=== PATIENT | female | born 1930 | race Caucasian/White ===

== ENCOUNTER → 2016-06-07 | Outpatient (CLI) | payer MEDICARE, BC ==
[~2016-06-07] MED LIST: ABILIFY2 MG PO; AMOXICOT500 MG PO; ASPIRIN 81MG TA81 MG PO; CYANOCOBAL1000 MCG/M PO; DONEPEZIL 10MG10 MG PO; EVISTA60 MG PO; FUROSEMIDE 20MG20 MG PO; LEVOTHYROXIN0.075 M1 PO; MELOXICAM15 MG PO; MICRO-K 10 MEQ10 MEQ PO; NAMENDA XR28 MG PO; OCUVITE ADULT 51 SGL PO; ONE DAILY FOR1 EAC3 PO; OYSTER SHELL 51 EACH PO; RANITIDINE HCL150 MG PO; TRAZODONE 50MG50 MG PO
--- NOTE | 2016-06-09 18:24 | RADIOLOGY REPORT PS360 ---
ANKLE-LT-3 VIEWS ORDERING PHYSICIAN : KAITLIN HANSON MD PATIENT AGE: 86 years GENDER: Female INDICATION: LT ANKLE PAIN Left ankle pain. Ulcer on lateral aspect of the ankle. Previous ORIF ankle TECHNIQUE: 3 views left ankle. COMPARISON: 02/15/2010 left ankle. FINDINGS Previous ORIF a distal fibular and tibial fractures at the ankle. Metallic plate at seen along the medial aspect distal tibia., secured by 6 screwsnt, Suggestion of old healed fracture distal fibula shaft, bridged by a long metallic plate secured by 6 screws previously placed lateral aspect of the distal fibula.... And appearing stable. There is osseous bridging between the fibula and tibia through the interosseous region resulting from the old trauma and old healed fracture process. There is a soft tissue ulcer overlying the lateral malleolus I believe evident. This extends down to the screw the most inferior screw securing metallic plate here at the lateral malleolus.. Although I do not see any prominent inflammation this warrants close follow-up as infection here could potentially spread it more easily to the underlying bone through the screw defect no evidence of such currently on this plain film Otherwise note mild diffuse edema throughout the subcutaneous fat of the lower leg, circumferential The ankle mortise is intact. Dome of talus intact. IMPRESSION: 1. Previous ORIF distal fibula and tibial fractures. Osseous and fixation elements appear stable. 2. Slight additional intraosseous bridging between the tibia and fibula since prior 2009 exam . 3.. Subtle small soft tissue ulcer defect suggested, overlying the most inferior screw securing a long metallic plate at distal fibula.. This warrants close follow-up. Note comments in text. .
== END ==
LOC: RAD 09:32 → LAB 09:32
DX: M25.572 Pain in left ankle and joints of left foot (principal); S91.002D Unspecified open wound, left ankle, subsequent encounter

== ENCOUNTER 2016-12-03 18:23 | Inpatient (IN) | payer MEDICARE, BC ==
[~2016-12-03] VITALS: Ht 167.6 cm; Wt 58.1 kg
[2016-12-03 11:45] VITALS: BP 142/86
[2016-12-03 18:24] VITALS: BP 153/73
--- NOTE | 2016-12-03 18:34 | Emergency Room Report ---
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 N Clinical Suspician of Infection? N Mental Status: 1 - Regular (Normal Baseline) Sepsis Risk:Low Sepsis Risk Have you (or family members/close friends) recently traveled outside the [place]? N If Yes, where/when: Have you had exposure to infectious disease within the past month? N TB? Other? Specify: Comment The patient is brought in by ambulance from [facility] [place] She reportedly had a fall and fpc personnel reported that she had a "goose egg" on her head. The patient is demented and not able to give any substantive history. EMS personnel noted shortening and external rotation of LEFT lower extremity with hip pain and suspected a hip fracture. They note no other signs of injury. (Kobe ALBARADO, [place]) ALLERGIES Coded Allergies: promethazine (From PHENERGAN) (07/15/16) Home Medications Active Scripts Amoxicillin (Amoxicillin 500MG) 500 MG PO Q8 #30 CAP Prov: 01/08/16 Reported Medications ASPIRIN (Aspirin) 81 MG PO DAILY DONEPEZIL HCL (Donepezil 10MG Tablet) 15 MG PO QHS Furosemide (Furosemide) 20 MG PO DAILY PRN SWELLING Levothyroxine Sodium (Levothyroxine 0.075MG) 0.075 MG PO DAILY Meloxicam (Meloxicam 15MG) 15 MG PO DAILY MEMANTINE HCL (Namenda XR) 28 MG PO DAILY VIT C/VIT E/LUTEIN/MIN/OMEGA-3 (Ocuvite Softgel) 1 SGL PO DAILY Multivitamins-Min/FA/Ginkgo (One Daily For Women 50+ Adv Tb) 1 EACH PO DAILY Calcium Carbonate/Vitamin D3 (Oyster Shell 500 MG + Vit D Tb) 1 EACH PO BID POTASSIUM CHL (Potassium Chloride) 10 MEQ PO DAILY PRN WITH FUROSEMIDE Ranitidine Hcl (Ranitidine 150MG) 75 MG PO BID TRAZODONE HCL (Trazodone HCl) 50 MG PO QHS VITAMIN B12 (Cyanocobalamin Injection) 1,000 MCG PO DAILY (Ha Jackson MD) History Medical History General CAD? No Angina: No MT: No Hypertension? No Hyperlipidemia? Yes CHF? No DVT? No PE? No COPD? No Asthma? No Anemia? No GERD? No Gastric ulcers? No GI Bleed? No Hernia? No Thyroid Problems? Yes Hypothyroidism? Yes CVA? No Seizures? Yes Diabetes? No Renal Insuffiency? No End Stage Renal Disease? No UTI? Yes Stones? No GB Disease: No Nephritic Syndrome? No Asplenia? No Hepatitis? No Sickle Cell Disease? No Arthritis? No Migraines? No Cataracts? Yes Glaucoma? No MRSA? No HIV? No TB? No Anxiety? No Depression? No Cancer? No More? Yes Additional hx: ALZHEIMERS Immunization Hx DT/Tetanus Unknown Surgical Hx Previous Surgery?Y L KNEE SURGERY LEFT FOOT Family History Family Hx Diabetes Yes CAD No Hypertension No Hyperlipidemia No Cancer Yes TB No Social History Alcohol Alcohol: No (Abdoulaye Bullock MD) Social History Drugs none (Ha Jackson MD) Review of Systems All Other Systems Reviewed and Negative (unobtainable due to dementia) (Abdoulaye Bullock MD) Physical Exam Vital Signs Vital Signs Date Time Temp Pulse Resp B/P Pulse O2 O2 Flow FiO2 Ox Delivery Rate 12/03 2118 89 16 178/60 91 12/03 1956 16 12/04 1951 87 16 155/86 92 12/03 192 98.2 73 16 153/73 96 12/03 1848 16 12/03 1824 98.2 84 18 153/73 95 General Appearance elderly, thin, dementia Eye Exam - bilateral eye normal exam, bilateral eye PERRL, bilateral eye EOMI Ear, Nose, Throat hearing grossly normal, normal ENT inspection, no sign of cranial trauma Neck normal inspection, non-tender, supple, full range of motion Respiratory Status Yes: trachea midline, chest symmetrical, non tender chest. No: respiratory distress. Lung Sounds bilateral: normal breath sounds, lungs clear. Cardiovascular normal exam, regular rate/rhythm, no peripheral edema, no gallop, no JVD, no murmur, no rub, normal peripheral pulses Peripheral Pulses Pulses normal Yes Gastrointestinal normal bowel sounds, normal exam, non tender, soft, no organomegaly Extremities LEFT knee elevated on a pillow, externally rotated . Holding LEFT hip with LEFT hand. Pain in hip with any attempted rotation of LEFT lower extremity. 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 Yes Gómez was queried for this patient? No Reason not queried - emergent pt cond=no time Results/Orders Laboratory Tests 12/03/161999: Urine Color YELLOW, Urine Appearance CLEAR, Urine pH 6.0, Ur Specific [place] 1.025, Urine Protein NEGATIVE, Urine Ketones NEGATIVE, Urine Blood NEGATIVE, Urine Nitrate POSITIVE H, Urine Bilirubin NEGATIVE, Urine Urobilinogen 0.2, Ur Leukocyte Esterase TRACE H, Urine RBC OCC, Urine WBC 5-10, Amorphous Sediment 1 +, Urine Bacteria 4+, Urine Mucus 1+, Urine Glucose NEGATIVE 12/03/161824: Sodium 143, Potassium 4.2, Chloride 103, Carbon Dioxide 35 H, BUN 25 H, Creatinine 0.7, Estimated Creat Clear 49 L, Estimated GFR (MDRD) 79, Glucose 187 H, Calcium 9.1, Total Bilirubin 0.3, AST 23, ALT 24, Alkaline Phosphatase 107, Total Protein 7.1, Albumin 3.2 L, Globulin 3.9 H, Albumin/Globulin Ratio 0.8 L, WBC 4.5 L, RBC 3.83 L, Hgb 11.7 L, Hct 37.1, MCV 97.0, RDW 15.6, Plt Count 168, MPV 8.1, Gran % 68.0, Gran # 3.1, Lymphocytes % 22.2, Monocytes % 7.4 , Eosinophils % 2.2, Basophils % 0.3, Lymphocytes # 1.0, Monocytes # 0.3, Eosinophils # 0.1, Basophils # 0.0, PUBS MCHC 31.5 L, MCH 30.6 Current Medication Orders Sig/Pa Start time Last Medication Dose Route Stop Time Status Admin Morphine Sulfate 2 MG ONCE ONE 12/04 1999 DC 12/03 IV 12/03 Morphine Sulfate 0 .STK-MED ONE 12/03 1942 DC .ROUTE Ondansetron HCl 0 .STK-MED ONE 12/03 1846 DC .ROUTE Morphine Sulfate 0 .STK-MED ONE 12/03 1845 DC .ROUTE Morphine Sulfate 2 MG ONCE ONE 12/03 1844 DC 12/03 IV 12/03 1845 184 Ondansetron HCl 4 MG ONCE ONE 12/03 1844 DC 12/03 IV 12/03 Sodium Chloride 10 ML PRN PRN 12/03 1844 AC IV 12/04 1840 Orders Procedure Date/time Status DIET-NOTHING BY MOUTH 12/04 B Active Decision to admit 12/03 2137 Active TROPONIN I 12/[address] CHEST W/O CONTRAST 12/[address] ABD & PELVIS W/O CONTRAST 12/04 2031 Active CULTURE, URINE 12/[address] CHEST SCAN REQ 12/[address] ABD/PELVIS REQ 12/[address] HEAD W/O CONTRAST 12/[address] CERVICAL SPINE W/O CONT. 12/[address] HEAD REQ 12/[address] SCAN REQ 12/04 1843 Complete URINARY CATHETER INSERT 12/03 1842 Active URINALYSIS/COMPLETE 12/03 1842 Complete ELECTROCARDIOGRAM REQUEST 12/03 1840 Active IV SALINE LOCK 12/03 1840 Active CBC WITH AUTO DIFF 12/03 1840 Complete CHEM 12 PROFILE 12/03 1840 Complete 12 LEAD EKG-LATTIMER MINES (INITIAL) 12/03 UNK Active CM/EKG CM/EKG Comments EKG interpreted by Abdoulaye Bullock MD: Rhythm: Atrial fibrillation Rate: 81 [place]: LEFT Ectopy: Premature ventricular contractions or aberrantly conducted beats Conduction: RIGHT bundle branch block, LEFT anterior fascicular block ST Segment Changes: none T Wave Changes: none Q Waves: none No evidence of acute ischemia or injury Baseline artifact present, but I consider the EKG adequate for accurate interpretation. XRAY/CT/US XRAY/CT/US XRAY chest, femur, hip Comment X-ray interpreted by Abdoulaye Bullock M.D.: LEFT subcapital hip fracture, displaced/angulated Femur x-ray: No additional findings Chest x-ray: Possible RIGHT basilar pneumothorax, does not seem to extend to the apex. No definite rib fractures seen. Progress - 8:00 PM: At shift change, I have discussed the patient with Dr. Jackson, who will assume care of the patient at this time. I have discussed all clinical information including history, physical and diagnostic study results. Preliminary diagnoses based on information available at this point have been recorded by me. Controlled substance administration and critical care statement are also preliminary, as of the time of handoff. Chest x-ray shows possible RIGHT basilar pneumothorax. Chest and abdominal CT scans ordered. 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 ST/Twave chgs, RBBB, lahb XRAY/CT/US XRAY/CT/US [address] interpretation by discussed w/radiologist Time results known: 2117 CT Results abnormal (no pxt- see report) (Ha Jackson MD) Departure Departure Disposition Still a Patient Condition STABLE ED Critical Care Critical Care No (Abdoulaye Bullock MD) Departure Time of Disposition 2140 Clinical Impression Primary Impression: Closed left hip fracture Qualifiers: Encounter type: initial encounter Qualified Code: S72.002A - Fracture of unspecified part of neck of left femur, initial encounter for closed fracture Secondary Impressions: Dementia Qualifiers: Dementia type: unspecified type Dementia behavioral disturbance: without behavioral disturbance Qualified Code: F03.90 - Unspecified dementia without behavioral disturbance RBBB (right bundle branch block with left anterior fascicular block) UTI (urinary tract infection) Qualifiers: Urinary tract infection type: acute cystitis Hematuria presence: without hematuria Qualified Code: N30.00 - Acute cystitis without hematuria Comments discussed with dr albarado (Ha Jackson MD) at 2002 at 2144
--- NOTE | 2016-12-03 18:34 | Emergency Room Report ---
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 N Clinical Suspician of Infection? N Mental Status: 1 - Regular (Normal Baseline) Sepsis Risk:Low Sepsis Risk Have you (or family members/close friends) recently traveled outside the [place]? N If Yes, where/when: Have you had exposure to infectious disease within the past month? N TB? Other? Specify: Comment [place] [facility] [place] a fall and snf personnel reported that she had a "goose egg" on her head. The patient is demented and not able to give any substantive history. EMS personnel noted shortening and external rotation of LEFT lower extremity with hip pain and suspected a hip fracture. They note no other signs of injury. (Kobe ALBARADO, [place]) ALLERGIES Coded Allergies: promethazine (From PHENERGAN) (07/15/16) Home Medications Active Scripts Amoxicillin (Amoxicillin 500MG) 500 MG PO Q8 #30 CAP Prov: 01/08/16 Reported Medications ASPIRIN (Aspirin) 81 MG PO DAILY DONEPEZIL HCL (Donepezil 10MG Tablet) 15 MG PO QHS Furosemide (Furosemide) 20 MG PO DAILY PRN SWELLING Levothyroxine Sodium (Levothyroxine 0.075MG) 0.075 MG PO DAILY Meloxicam (Meloxicam 15MG) 15 MG PO DAILY MEMANTINE HCL (Namenda XR) 28 MG PO DAILY VIT C/VIT E/LUTEIN/MIN/OMEGA-3 (Ocuvite Softgel) 1 SGL PO DAILY Multivitamins-Min/FA/Ginkgo (One Daily For Women 50+ Adv Tb) 1 EACH PO DAILY Calcium Carbonate/Vitamin D3 (Oyster Shell 500 MG + Vit D Tb) 1 EACH PO BID POTASSIUM CHL (Potassium Chloride) 10 MEQ PO DAILY PRN WITH FUROSEMIDE Ranitidine Hcl (Ranitidine 150MG) 75 MG PO BID TRAZODONE HCL (Trazodone HCl) 50 MG PO QHS VITAMIN B12 (Cyanocobalamin Injection) 1,000 MCG PO DAILY (Ha Jackson MD) History Medical History General CAD? No Angina: No AR: No Hypertension? No Hyperlipidemia? Yes CHF? No DVT? No PE? No COPD? No Asthma? No Anemia? No GERD? No Gastric ulcers? No GI Bleed? No Hernia? No Thyroid Problems? Yes Hypothyroidism? Yes CVA? No Seizures? Yes Diabetes? No Renal Insuffiency? No End Stage Renal Disease? No UTI? Yes Stones? No GB Disease: No Nephritic Syndrome? No Asplenia? No Hepatitis? No Sickle Cell Disease? No Arthritis? No Migraines? No Cataracts? Yes Glaucoma? No MRSA? No HIV? No TB? No Anxiety? No Depression? No Cancer? No More? Yes Additional hx: ALZHEIMERS Immunization Hx DT/Tetanus Unknown Surgical Hx Previous Surgery?Y L KNEE SURGERY LEFT FOOT Family History Family Hx Diabetes Yes CAD No Hypertension No Hyperlipidemia No Cancer Yes TB No Social History Alcohol Alcohol: No (Abdoulaye Bullock MD) Social History Drugs none (Ha Jackson MD) Review of Systems All Other Systems Reviewed and Negative (unobtainable due to dementia) (Abdoulaye Bullock MD) Physical Exam Vital Signs Vital Signs Date Time Temp Pulse Resp B/P Pulse O2 O2 Flow FiO2 Ox Delivery Rate 12/03 2118 89 16 178/60 91 12/03 1956 16 12/04 1951 87 16 155/86 92 12/03 192 98.2 73 16 153/73 96 12/03 1848 16 12/03 1824 98.2 84 18 153/73 95 General Appearance elderly, thin, dementia Eye Exam - bilateral eye normal exam, bilateral eye PERRL, bilateral eye EOMI Ear, Nose, Throat hearing grossly normal, normal ENT inspection, no sign of cranial trauma Neck normal inspection, non-tender, supple, full range of motion Respiratory Status Yes: trachea midline, chest symmetrical, non tender chest. No: respiratory distress. Lung Sounds bilateral: normal breath sounds, lungs clear. Cardiovascular normal exam, regular rate/rhythm, no peripheral edema, no gallop, no JVD, no murmur, no rub, normal peripheral pulses Peripheral Pulses Pulses normal Yes Gastrointestinal normal bowel sounds, normal exam, non tender, soft, no organomegaly Extremities LEFT knee elevated on a pillow, externally rotated . Holding LEFT hip with LEFT hand. Pain in hip with any attempted rotation of LEFT lower extremity. 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 Yes Gómez was queried for this patient? No Reason not queried - emergent pt cond=no time Results/Orders Laboratory Tests 12/03/161999: Urine Color YELLOW, Urine Appearance CLEAR, Urine pH 6.0, Ur Specific [place] 1.025, Urine Protein NEGATIVE, Urine Ketones NEGATIVE, Urine Blood NEGATIVE, Urine Nitrate POSITIVE H, Urine Bilirubin NEGATIVE, Urine Urobilinogen 0.2, Ur Leukocyte Esterase TRACE H, Urine RBC OCC, Urine WBC 5-10, Amorphous Sediment 1 +, Urine Bacteria 4+, Urine Mucus 1+, Urine Glucose NEGATIVE 12/03/161824: Sodium 143, Potassium 4.2, Chloride 103, Carbon Dioxide 35 H, BUN 25 H, Creatinine 0.7, Estimated Creat Clear 49 L, Estimated GFR (MDRD) 79, Glucose 187 H, Calcium 9.1, Total Bilirubin 0.3, AST 23, ALT 24, Alkaline Phosphatase 107, Total Protein 7.1, Albumin 3.2 L, Globulin 3.9 H, Albumin/Globulin Ratio 0.8 L, WBC 4.5 L, RBC 3.83 L, Hgb 11.7 L, Hct 37.1, MCV 97.0, RDW 15.6, Plt Count 168, MPV 8.1, Gran % 68.0, Gran # 3.1, Lymphocytes % 22.2, Monocytes % 7.4 , Eosinophils % 2.2, Basophils % 0.3, Lymphocytes # 1.0, Monocytes # 0.3, Eosinophils # 0.1, Basophils # 0.0, PUBS MCHC 31.5 L, MCH 30.6 Current Medication Orders Sig/Pa Start time Last Medication Dose Route Stop Time Status Admin Morphine Sulfate 2 MG ONCE ONE 12/04 1999 DC 12/03 IV 12/03 Morphine Sulfate 0 .STK-MED ONE 12/03 1942 DC .ROUTE Ondansetron HCl 0 .STK-MED ONE 12/03 1846 DC .ROUTE Morphine Sulfate 0 .STK-MED ONE 12/03 1845 DC .ROUTE Morphine Sulfate 2 MG ONCE ONE 12/03 1844 DC 12/03 IV 12/03 1845 184 Ondansetron HCl 4 MG ONCE ONE 12/03 1844 DC 12/03 IV 12/03 Sodium Chloride 10 ML PRN PRN 12/03 1844 AC IV 12/04 1840 Orders Procedure Date/time Status DIET-NOTHING BY MOUTH 12/04 B Active Decision to admit 12/03 2137 Active TROPONIN I 12/[address] CHEST W/O CONTRAST 12/[address] ABD & PELVIS W/O CONTRAST 12/04 2031 Active CULTURE, URINE 12/[address] CHEST SCAN REQ 12/[address] ABD/PELVIS REQ 12/[address] HEAD W/O CONTRAST 12/[address] CERVICAL SPINE W/O CONT. 12/[address] HEAD REQ 12/[address] SCAN REQ 12/04 1843 Complete URINARY CATHETER INSERT 12/03 1842 Active URINALYSIS/COMPLETE 12/03 1842 Complete ELECTROCARDIOGRAM REQUEST 12/03 1840 Active IV SALINE LOCK 12/03 1840 Active CBC WITH AUTO DIFF 12/03 1840 Complete CHEM 12 PROFILE 12/03 1840 Complete 12 LEAD EKG-GILBY (INITIAL) 12/03 UNK Active CM/EKG CM/EKG Comments EKG interpreted by Abdoulaye Bullock MD: Rhythm: Atrial fibrillation Rate: 81 [place]: LEFT Ectopy: Premature ventricular contractions or aberrantly conducted beats Conduction: RIGHT bundle branch block, LEFT anterior fascicular block ST Segment Changes: none T Wave Changes: none Q Waves: none No evidence of acute ischemia or injury Baseline artifact present, but I consider the EKG adequate for accurate interpretation. XRAY/CT/US XRAY/CT/US XRAY chest, femur, hip Comment X-ray interpreted by Abdoulaye Bullock M.D.: LEFT subcapital hip fracture, displaced/angulated Femur x-ray: No additional findings Chest x-ray: Possible RIGHT basilar pneumothorax, does not seem to extend to the apex. No definite rib fractures seen. Progress - 8:00 PM: At shift change, I have discussed the patient with Dr. Jackson, who will assume care of the patient at this time. I have discussed all clinical information including history, physical and diagnostic study results. Preliminary diagnoses based on information available at this point have been recorded by me. Controlled substance administration and critical care statement are also preliminary, as of the time of handoff. Chest x-ray shows possible RIGHT basilar pneumothorax. Chest and abdominal CT scans ordered. (Abdoulaye Bullock MD) CM/EKG CM/post secondary professional Rhythm Atrial Fibrillation EKG compared w/(date of old), non-spec. ST/Twave chgs, RBBB, lahb XRAY/CT/US XRAY/CT/US [address] interpretation by discussed w/radiologist Time results known: 2117 CT Results abnormal (no pxt- see report) (Ha Jackson MD) Departure Departure Disposition Still a Patient Condition STABLE ED Critical Care Critical Care No (Abdoulaye Bullock MD) Departure Time of Disposition 2140 Clinical Impression Primary Impression: Closed left hip fracture Qualifiers: Encounter type: initial encounter Qualified Code: S72.002A - Fracture of unspecified part of neck of left femur, initial encounter for closed fracture Secondary Impressions: Dementia Qualifiers: Dementia type: unspecified type Dementia behavioral disturbance: without behavioral disturbance Qualified Code: F03.90 - Unspecified dementia without behavioral disturbance RBBB (right bundle branch block with left anterior fascicular block) UTI (urinary tract infection) Qualifiers: Urinary tract infection type: acute cystitis Hematuria presence: without hematuria Qualified Code: N30.00 - Acute cystitis without hematuria Comments discussed with dr albarado (Ha Jackson MD) at 2002 at 2144
--- OUTSIDE RECORDS SUMMARY | 2016-12-03 18:50 | External Medical Summary Rpt ---
Author Author [employer] Organization [employer] Address Unknown Phone Unavailable Purpose Continuity of Care Document - through 2016
--- OUTSIDE RECORDS SUMMARY | 2016-12-03 18:50 | External Medical Summary Rpt ---
Demographics Preferred Language Bengali Marital Status Unknown Moravian Affiliation Unknown Race Unknown Ethnic Group Unknown Author Author , ANDI ESCAMILLA Address Unknown Phone Immunization Unable to retrieve immunization data due to connection failure with Immunization Registry. Please try again later.
--- OUTSIDE RECORDS SUMMARY | 2016-12-03 18:50 | External Medical Summary Rpt ---
Demographics Preferred Language Tajik Marital Status Unknown Episcopalian Affiliation Unknown Race Unknown Ethnic Group Unknown Author Author , ANDI ESCAMILLA Address Unknown Phone Immunization Unable to retrieve immunization data due to connection failure with Immunization Registry. Please try again later.
--- OUTSIDE RECORDS SUMMARY | 2016-12-03 18:50 | External Medical Summary Rpt ---
Author Author [employer], [employer] Organization [employer] Address Unknown Phone Unavailable
--- OUTSIDE RECORDS SUMMARY | 2016-12-03 18:50 | External Medical Summary Rpt ---
Author Author [employer]NANC[employer] Address Unknown Phone Purpose Continuity of Care Document - through 2016
[2016-12-03 19:04] LABS: LYMPH % 22.2 % (10-50.0)
[2016-12-03 19:09] LABS: HEMOGLOBIN 11.7 g/dL (12.2-16.2)
[2016-12-03 20:13] LABS: URINE BILIRUBIN - DIPSTICK NEGATIVE (NEG); URINE BLOOD NEGATIVE (NEG)
--- NOTE | 2016-12-03 21:39 | RADIOLOGY REPORT PS360 ---
CHEST-AP VIEW ONLY COMPARISON: PA and lateral chest 06/19/2016 HISTORY: Chest pain after a fall TECHNIQUE: AP supine chest FINDINGS: The lung alba are fairly well-expanded and appear clear of infiltrate. There is no obvious rib fracture and there is no pneumothorax. There is a linear interface seen paralleling the right lateral chest which suspect is due to a skin fold rather than a pneumothorax but if there is a strong clinical suspicion of a possible developing pneumothorax and upright AP chest will be helpful for better evaluation. There is mild cardiomegaly. There is no definite pleural fluid. IMPRESSION: Cardio megaly no definite acute chest pathology noted, see discussion above regarding possible pneumothorax
--- NOTE | 2016-12-03 21:40 | RADIOLOGY REPORT PS360 ---
HIP LT 2-3V W/PELVIS IF PERFOR COMPARISON: None HISTORY: Left hip pain after a fall TECHNIQUE: AP pelvis cone-down AP and crosstable lateral views left hip FINDINGS: Is a femoral neck fracture left hip with coxa vera angulation at the fracture site and slight upward retraction of the femur. The femoral head remains within the acetabulum. The right hip is intact. The iliac bones and pubic bones appear intact. IMPRESSION: Subcapital femoral neck fracture with coxa vera angulation left hip
--- NOTE | 2016-12-03 21:42 | RADIOLOGY REPORT PS360 ---
FEMUR-LT-2 VIEWS COMPARISON: None HISTORY: Left hip pain after fall TECHNIQUE: AP and crosstable lateral views FINDINGS: The femur distal to the femoral neck is intact with no evidence of fracture. There is minor degenerative change of the knee joint with joint space narrowing medially. The soft tissues are normal. There is faint calcification of the superficial femoral artery. IMPRESSION: Femoral neck fracture as described in the hip report, otherwise intact left distal femur
--- OUTSIDE RECORDS SUMMARY | 2016-12-03 21:54 | External Medical Summary Rpt ---
Demographics Preferred Language Slovenian Marital Status Unknown Taoist Affiliation Unknown Race Unknown Ethnic Group Unknown Author Author ANDI Address Unknown Phone Immunization No patient found.
--- OUTSIDE RECORDS SUMMARY | 2016-12-03 21:54 | External Medical Summary Rpt ---
Demographics Preferred Language Greenlandic Marital Status Unknown Caodaism Affiliation Unknown Race Unknown Ethnic Group Unknown Author Author ANDI Address Unknown Phone Immunization No patient found.
[2016-12-03 23:00] VITALS: BP 142/86
--- NOTE | 2016-12-03 23:05 | RADIOLOGY REPORT PS360 ---
CT HEAD WITHOUT CONTRAST CT BONE WINDOWS included ORDERING PHYSICIAN : Wesly Triplett MD PATIENT AGE: 86 years GENDER: Female PROCEDURE: Routine axial images headwithout contrast. Brain & bone windows HISTORY: Unwitnessed FALL 86-year-old. Fall. Head injury. Headache. Head trauma. COMPARISON: December 2015 CT head without. Also November 2008 CT head FINDINGS: No acute intracranial findings. No hemorrhage. . No mass effect or mass lesion. No subdural nor extra-axial collection. . No significant change since [address] Again note small 8 mm focal pleural based calcification anteriorly, just to the left of the falx. I of this appears stable and reflects a benign feature from either due to focal dural calcification or small stable calcified meningioma.. No significant progression or change since head CT dated back to 2008. Prominent cerebral atrophy. Prominent chronic small vessel deep white matter ischemic,/ gliotic changes at cerebral hemispheres bilaterally again seen no significant change since previous study. Patchy low-density throughout the periventricular region. Also Specifically note a focal 5 mm small lacunar infarct overlying the left lateral ventricle anteriorly. Posterior fossa is unremarkable The skull is intact. No fracture. No remarkable application integration specialist hematoma. Paranasal sinuses are fairly clear with only minor mucosal thickening at the posterior aspect left maxillary sinus. No air-fluid levelsMastoid air cells, middle ear & IACs are unremarkable. IMPRESSION: No acute intracranial findings. No significant change versus December 2015 Diffuse cerebral atrophy. Prominent chronic small vessel deep white matter ischemic changes cerebral hemispheres bilateral again noted
--- NOTE | 2016-12-03 23:10 | RADIOLOGY REPORT PS360 ---
CT CERVICAL SPINE W/O CONT Ordering Physician: Wesly Triplett MD Patient Age: 86 years: Female HISTORY: FALL. Neck pain. Trauma. TECHNIQUE: Helical CT scanning performed of the cervical spine with axial, sagittal and coronal reconstruction CT workstation FINDINGS . No acute fracture nor subluxation cervical spine.. Alignment and prevertebral soft tissues appear satisfactory. Multilevel degenerative disc changes, stable and cervical spondylosis with. C4/5. Disc space narrowing most evident posteriorly at this level with Diffuse posterior hypertrophic ridging impinge upon thecal sac and yielding bilateral foraminal encroachment most of the left. C-spine C6 with this space narrowing and trace posterior ridging most evident to the right right foraminal encroachment. Facet hypertrophy and arthropathy bilaterally. Prevertebral soft tissues satisfactory. Apices the lungs clear. IMPRESSION: No acute fracture nor subluxation cervical spine Normal alignment Cervical spondylosis with degenerative disc changes C-spine. Developing degenerative facet changes also noted.
[2016-12-04] VITALS (15 sets, daily range): BP systolic 85–123; BP diastolic 50–87
[2016-12-04 06:41] LABS: HEMOGLOBIN 11.3 g/dL (12.2-16.2); LYMPH # 0.7 K/mm3 (0.7-4.5); LYMPH % 9.5 % (10-50.0)
--- NOTE | 2016-12-04 07:42 | HISTORY AND PHYSICAL REPORT ---
Demographics: Admit date: 12/04/16 Chief complaint: Fall at [facility] with LEFT hip fracture PRIMARY DIAGNOSIS: left hip fracture Allergies: Coded Allergies: promethazine (From PHENERGAN) (07/15/16) History of present illness: History of present illness: 86-year-old white female with significant/end-stage dementia as well as significant cardiomyopathy with ejection fraction in the 20 percent range who presented to the emergency department after falling with LEFT hip pain, found to have fracture, admitted to hospital. This morning she is pleasant and talkative but clearly demented. Has no complaints of pain. Past medical history: Family HX Diabetes Yes CAD No Hypertension No Hyperlipidemia No Cancer Yes TB No Immunization HX DT/Tetanus Unknown Pneumonia Unknown TB Test in last year No General CAD? No Angina: No HI: No Hypertension? No Hyperlipidemia? Yes CHF? No DVT? No PE? No COPD? No Asthma? No Anemia? No GERD? No Gastric ulcers? No GI Bleed? No Hernia? No Thyroid Problems? Yes Hypothyroidism? Yes CVA? No Seizures? Yes Diabetes? No Renal Insuffiency? No UTI? Yes Stones? No GB Disease: No Nephritic Syndrome? No Asplenia? No Hepatitis? No Sickle Cell Disease? No Arthritis? No Migraines? No Cataracts? Yes Glaucoma? No MRSA? No HIV? No TB? No Anxiety? No Depression? No Cancer? No More? Yes Additional hx: ALZHEIMERS Past Surgical HX Previous Surgery?Y L KNEE SURGERY LEFT FOOT Current home meds: Active Scripts Amoxicillin (Amoxicillin 500MG) 500 MG PO Q8 #30 CAP Prov: 01/08/16 Reported Medications ASPIRIN (Aspirin) 81 MG PO DAILY DONEPEZIL HCL (Donepezil 10MG Tablet) 15 MG PO QHS Furosemide (Furosemide) 20 MG PO DAILY PRN SWELLING Levothyroxine Sodium (Levothyroxine 0.075MG) 0.075 MG PO DAILY Meloxicam (Meloxicam 15MG) 15 MG PO DAILY MEMANTINE HCL (Namenda XR) 28 MG PO DAILY VIT C/VIT E/LUTEIN/MIN/OMEGA-3 (Ocuvite Softgel) 1 SGL PO DAILY Multivitamins-Min/FA/Ginkgo (One Daily For Women 50+ Adv Tb) 1 EACH PO DAILY Calcium Carbonate/Vitamin D3 (Oyster Shell 500 MG + Vit D Tb) 1 EACH PO BID POTASSIUM CHL (Potassium Chloride) 10 MEQ PO DAILY PRN WITH FUROSEMIDE Ranitidine Hcl (Ranitidine 150MG) 75 MG PO BID TRAZODONE HCL (Trazodone HCl) 50 MG PO QHS VITAMIN B12 (Cyanocobalamin Injection) 1,000 MCG PO DAILY Social Hx: Smoking HX Tobacco No Are you/the child exposed to second-hand smoke: No Alcohol Alcohol: No Hx of Drug Use Drug Use? No Patien't marital status is single Patient's support system is excellent Comment: Maintains DNR status, long-term resident of memory unit at local [facility] Review of systems: Constitutional No: fever, malaise, weakness. Respiratory No: no symptoms reported. Cardiovascular No no symptoms reported Gastrointestinal/Abdominal No no symptoms reported Genitourinary No: no symptoms reported, see HPI. Musculoskeletal No: no symptoms reported. Neurological No: see HPI. Exam: Lab data for last 24 hours: Laboratory Tests 12/04/16 0620: Sodium 142, Potassium 4.3, Chloride 104, Carbon Dioxide 29, BUN 22 H, Creatinine 0.7, Estimated Creat Clear 45 L, Estimated GFR (MDRD) 79, Glucose 190 H, Calcium 8.6, WBC 7.3, RBC 3.64 L, Hgb 11.3 L, Hct 35.1 L, MCV 96.6, RDW 15.4, Plt Count 160, MPV 8.4, Gran % 82.4 H, Gran # 6.0, Lymphocytes % 9.5 L, Monocytes % 7.9, Eosinophils % 0.0 L, Basophils % 0.2, Lymphocytes # 0.7, Monocytes # 0.6, Eosinophils # 0.0, Basophils # 0.0, PUBS MCHC 32.1, MCH 31.0 12/03/161999: Urine Color YELLOW, Urine Appearance CLEAR, Urine pH 6.0, Ur Specific [place] 1.025, Urine Protein NEGATIVE, Urine Ketones NEGATIVE, Urine Blood NEGATIVE, Urine Nitrate POSITIVE H, Urine Bilirubin NEGATIVE, Urine Urobilinogen 0.2, Ur Leukocyte Esterase TRACE H, Urine RBC OCC, Urine WBC 5-10, Amorphous Sediment 1 +, Urine Bacteria 4+, Urine Mucus 1+, Urine Glucose NEGATIVE 12/03/161824: Troponin I < 0.02 07/11/17 1825: Sodium 143, Potassium 4.2, Chloride 103, Carbon Dioxide 35 H, BUN 25 H, Creatinine 0.7, Estimated Creat Clear 49 L, Estimated GFR (MDRD) 79, Glucose 187 H, Calcium 9.1, Total Bilirubin 0.3, AST 23, ALT 24, Alkaline Phosphatase 107, Total Protein 7.1, Albumin 3.2 L, Globulin 3.9 H, Albumin/Globulin Ratio 0.8 L, WBC 4.5 L, RBC 3.83 L, Hgb 11.7 L, Hct 37.1, MCV 97.0, RDW 15.6, Plt Count 168, MPV 8.1, Gran % 68.0, Gran # 3.1, Lymphocytes % 22.2, Monocytes % 7.4 , Eosinophils % 2.2, Basophils % 0.3, Lymphocytes # 1.0, Monocytes # 0.3, Eosinophils # 0.1, Basophils # 0.0, PUBS MCHC 31.5 L, MCH 30.6 Microbiology 12/04 1999 URINE CC: Urine Culture - RECD Admission vital signs: 1ST Vital Signs Result Date Time Pulse Ox 93 12/03 1145 O2 Delivery ROOM AIR 12/03 1145 B/P 142/86 12/03 1145 Temp 98.2 12/03 1145 Pulse 94 12/03 1145 Resp 18 12/03 1145 Additional information: Patient is talkative, disoriented to place and time. Lungs are clear in anterior alba. Heart rate regular with gallop rhythm noted which is a previously old finding. Abdomen is soft and nontender. LEFT leg is shortened and externally rotated. Pulses are good however and she is able to wiggle her toes. Plan: Problem List 1. Closed left hip fracture 2. Systolic congestive heart failure 3. Dementia Plan: Patient with LEFT hip fracture. Also with severe cardiomyopathy with low ejection fraction, advanced age. Patient is elevated risk for surgery but given current situation this seems to be in absolutely necessary procedure. Continue cardiology evaluation. Will follow closely. at 0742
--- NOTE | 2016-12-04 07:58 | PHARMACY CLINIC NOTE ---
Patient Demographics Patient Demographics Admission date: 12/03/16 Date: 12/04/16 Time: 0758 Allergies Coded Allergies: promethazine (From PHENERGAN) (07/15/16) HEIGHT- FT: 5 IN: 6.00 K.[id number] VTE General Information Labs: Laboratory Tests 12/04 12/03 0620 1825 Hematology Hgb (12.2 - 16.2 g/dL) 11.3 L 11.7 L Hct (37.0 - 47.0 %) 35.1 L 37.1 Plt Count (142 - 424 K/mm3) 160 168 Disclaimer The following section includes nursing documentation that has been pulled in for pharmacy review. Patient's VTE score: 4 Patient's VTE Risk: LOW RISK Clinical trial participant? No VTE prophylaxis NQF [id number] VTE prophylaxis ordered? Yes Type of prophylaxis/treatment: MAXIMILIANO at 0758
[2016-12-04] MEDS ORDERED: SERTRALINE25 MG PO (08:07)
[2016-12-04] MEDS ORDERED: CARVEDILOL3.125 M1 PO (08:08)
[2016-12-04] MEDS ORDERED: LISINOPRIL2.5 M1 PO (08:08)
[2016-12-04] MEDS ORDERED: MIRTAZAPINE15 M1 PO (08:08)
--- NOTE | 2016-12-04 09:00 | RADIOLOGY REPORT PS360 ---
CT ABD PELVIS W/O CONTRAST Ordering Physician: Wesly Triplett MD Patient Age: 86 years: Female HISTORY: [id number]. Fall with pain. Hip fracture. TECHNIQUE: Helical CT scanning performed the abdomen & pelvis COMPARISON is made to previous CT abdomen from January 2010 FINDINGS Lower thorax. Basilar atelectasis most evident on left lung base . Scant pericardial effusion. ABDOMEN/PELVIS. Lack of oral and IV contrast decreases sensitivity particularly in setting of trauma. If there should be persistent abdominal suggest [id number] CT abdomen with contrast as per trauma protocol. There is also streak artifact from the patient's arms at her side as well as some motion artifact which degrades images currently. Liver. Unremarkable Gallbladder unremarkable no calcified stones. Pancreas limited noncontrast images here unremarkable . Spleen. Normal size no gross acute findings on this noncontrast study. Kidneys. No acute findings. No obstructive uropathy. Tiny punctate 2.5 mm calculus at lower pole left kidney. Nonobstructive. No free fluid no free air in the abdomen or pelvis. GI tract Stomach. Moderately distended food/fluid filled stomach Small bowel. Generous caliber small bowel loops towards the lower abdomen and pelvis. Increased gas in some loops with with moderate fluid other distal small bowel- appearance may reflect mild ileus. Large bowel. A generous stool throughout the colon suggesting mild constipation. Diverticulosis is fairly extensive at the redundant sigmoid colon with scattered diverticuli at the left colon. No evidence of diverticulitis. Pelvis. Haq catheter loops within the bladder. Minimal air within the bladder likely related to the Haq catheter. The small postmenopausal uterus. No adnexal masses no free fluid. Terminal ileum appears normal. No evidence of appendicitis Bones. No acute findings. Spine Again prominent grade 1 spinal listhesis of L4 on 5 with diffuse disc bulge and exuberant facet hypertrophy at this level noted yielding prominent spinal stenosis L4/5 level.. Degenerative disc space narrowing and posterior hypertrophic ridging at L2/3 IMPRESSION 1. no acute findings in the abdomen or pelvis. On this noncontrast CT abdomen/pelvis study If abdominal pain persist suggest a follow-up postcontrast abdomen per trauma protocol. 2.. Generous gas, generous fluid within borderline distended distal small bowel loops-could reflect mild Ileus but unimpressive 3. Other incidental observations in text: .Colonic diverticulosis most extensive sigmoid colon .Tiny 2.5 mm nonobstructive calculus lower pole left kidney. .. Haq catheter in place likely accounting for small amount of air in the bladder
--- NOTE | 2016-12-04 09:09 | CONSULT NOTE ---
Standard Demographics Patient Demo Date of Consultation: 12/04/16 Referring Provider: Wesly Triplett MD Reason for Consultation: Pre-op evaluation PRIMARY DIAGNOSIS: left hip fracture Problem list Problem list: 1. Severe cardiomyopathy A. Echocardiogram, 07/10/16 showing EF of 15-20 percent with global hypokinesis. Severe MR/TR with elevated RVSP of 44 mmHg indicative of moderate pulmonary hypertension 2. Dementia 3. Chronic kidney disease, stage III 4. History of hypertension History of present illness: History of present illness: 86-year-old white female with significant/end-stage dementia as well as significant cardiomyopathy with ejection fraction in the 20 percent range who presented to the emergency department after falling with LEFT hip pain, found to have fracture, admitted to hospital. This morning she is pleasant and talkative but clearly demented. Has no complaints of pain. The above per Dr. Triplett. The granddaughter is present in the room. She relates that there are 2 possibilities of outpatient broke her hip. One was that she was found down with no witnesses. The other was that she stood up after eating and tripped and fell. The patient does not remember. Electrocardiogram shows atrial fibrillation with controlled ventricular response , RIGHT bundle branch block and LEFT anterior fascicular block. Atrial fibrillation is new compared with electrocardiogram from earlier this year. She previously had a severe first-degree AV block. Past Medical History: General: Hypertension No CVA No Seizures Yes TB No COPD No Asthma No Diabetes No Angina No LA No Hyperlipidemia Yes Urinary Yes Cancer No Rheumatic H.D. No Ulcers No MRSA No GB Disease No Other DIVIERTICULITIS Additional hx ALZHEIMERS Past Surgical HX: Previous Surgery?Y L KNEE SURGERY LEFT FOOT Allergies Coded Allergies: promethazine (From PHENERGAN) (07/15/16) Home medications: Active Scripts Amoxicillin (Amoxicillin 500MG) 500 MG PO Q8 #30 CAP Prov: 01/08/16 Reported Medications DONEPEZIL HCL (Donepezil 10MG Tablet) 10 MG PO QHS Mirtazapine 15 MG PO QHS #30 TAB Lisinopril 2.5 MG PO DAILY DIGOXIN (Digox) 0.125 MG PO DAILY Sertraline Hcl (Sertraline HCl) 25 MG PO DAILY #30 Carvedilol 3.125 MG PO BID #60 Furosemide 40 MG PO DAILY #14 ASPIRIN (Aspirin) 81 MG PO DAILY Levothyroxine Sodium (Levothyroxine 0.075MG) 0.075 MG PO DAILY MEMANTINE HCL (Namenda XR) 28 MG PO DAILY VIT C/VIT E/LUTEIN/MIN/OMEGA-3 (Ocuvite Softgel) 1 SGL PO DAILY Multivitamins-Min/FA/Ginkgo (One Daily For Women 50+ Adv Tb) 1 EACH PO DAILY Calcium Carbonate/Vitamin D3 (Oyster Shell 500 MG + Vit D Tb) 1 EACH PO BID POTASSIUM CHL (Potassium Chloride) 10 MEQ PO DAILY PRN WITH FUROSEMIDE Ranitidine Hcl (Ranitidine 150MG) 75 MG PO BID VITAMIN B12 (Cyanocobalamin Injection) 1,000 MCG PO DAILY Current Medications: Current Medications Ceftriaxone Sodium 1 GM 2100 IV Sodium Chloride 50 ML Sodium Chloride 10 ML PRN PRN IV Ceftriaxone Sodium 1 GM ONCE ONE IV (DC) Sodium Chloride 50 ML Morphine Sulfate 2 MG Q4HP PRN IV Ondansetron HCl 4 MG Q6HP PRN IV Sodium Chloride 1,000 ML .Q20H IV Ceftriaxone Sodium 0 .STK-MED ONE IV (DC) Sodium Chloride 50 ML .STK-MED ONE IV (DC) Morphine Sulfate 2 MG ONCE ONE IV (DC) Morphine Sulfate 0 .STK-MED ONE .ROUTE (DC) Ondansetron HCl 0 .STK-MED ONE .ROUTE (DC) Morphine Sulfate 0 .STK-MED ONE .ROUTE (DC) Morphine Sulfate 2 MG ONCE ONE IV (DC) Ondansetron HCl 4 MG ONCE ONE IV (DC) Sodium Chloride 10 ML PRN PRN IV Immunization HX DT/Tetanus Unknown Pneumonia Unknown TB Test in last year No Family history Family HX Family Hx Insignificant No Diabetes Yes CAD No Hypertension No Hyperlipidemia No Cancer Yes TB No Social Hx: Smoking HX Tobacco No Are you/the child exposed to second-hand smoke: No Alcohol Alcohol: No Hx of Drug Use Drug Use? No Review of systems: Constitutional No: no symptoms reported. Respiratory No: no symptoms reported. Cardiovascular No no symptoms reported Gastrointestinal/Abdominal No no symptoms reported Genitourinary No: no symptoms reported. Musculoskeletal see HPI. Neurological Yes: see HPI. Exam: Admission Vital Signs: 1ST Vital Signs Result Date Time Pulse Ox 93 12/03 1145 O2 Delivery ROOM AIR 12/03 1145 B/P 142/86 12/03 1145 Temp 98.2 12/03 1145 Pulse 94 12/03 1145 Resp 18 12/03 114 Last Vital Signs: Vital Signs Result Date Time Pulse Ox 92 12/04 804 B/P 123/73 12/04 804 Temp 98.7 12/04 08 Pulse 107 12/04 08 Resp 16 12/04 08 O2 Delivery ROOM AIR 12/04 0756 Exam General appearance: alert, no acute distress Neck: no carotid bruit, no JVD Cardiovascular: irregularly irregular with controlled ventricular response and S3 gallop. Respiratory: clear to auscultation ABD: soft, no tenderness Extremities: moves all, no peripheral edema Neuro: alert, intact, oriented Laboratory data: Laboratory Tests 12/04/16619: Sodium 142, Potassium 4.3, Chloride 104, Carbon Dioxide 29, BUN 22 H, Creatinine 0.7, Estimated Creat Clear 45 L, Estimated GFR (MDRD) 79, Glucose 190 H, Calcium 8.6, WBC 7.3, RBC 3.64 L, Hgb 11.3 L, Hct 35.1 L, MCV 96.6, RDW 15.4, Plt Count 160, MPV 8.4, Gran % 82.4 H, Gran # 6.0, Lymphocytes % 9.5 L, Monocytes % 7.9, Eosinophils % 0.0 L, Basophils % 0.2, Lymphocytes # 0.7, Monocytes # 0.6, Eosinophils # 0.0, Basophils # 0.0, PUBS MCHC 32.1, MCH 31.0 12/03/161999: Urine Color YELLOW, Urine Appearance CLEAR, Urine pH 6.0, Ur Specific [place] 1.025, Urine Protein NEGATIVE, Urine Ketones NEGATIVE, Urine Blood NEGATIVE, Urine Nitrate POSITIVE H, Urine Bilirubin NEGATIVE, Urine Urobilinogen 0.2, Ur Leukocyte Esterase TRACE H, Urine RBC OCC, Urine WBC 5-10, Amorphous Sediment 1 +, Urine Bacteria 4+, Urine Mucus 1+, Urine Glucose NEGATIVE 12/03/161824: Troponin I < 0.02 12/03/161824: Sodium 143, Potassium 4.2, Chloride 103, Carbon Dioxide 35 H, BUN 25 H, Creatinine 0.7, Estimated Creat Clear 49 L, Estimated GFR (MDRD) 79, Glucose 187 H, Calcium 9.1, Total Bilirubin 0.3, AST 23, ALT 24, Alkaline Phosphatase 107, Total Protein 7.1, Albumin 3.2 L, Globulin 3.9 H, Albumin/Globulin Ratio 0.8 L, WBC 4.5 L, RBC 3.83 L, Hgb 11.7 L, Hct 37.1, MCV 97.0, RDW 15.6, Plt Count 168, MPV 8.1, Gran % 68.0, Gran # 3.1, Lymphocytes % 22.2, Monocytes % 7.4 , Eosinophils % 2.2, Basophils % 0.3, Lymphocytes # 1.0, Monocytes # 0.3, Eosinophils # 0.1, Basophils # 0.0, PUBS MCHC 31.5 L, MCH 30.6 Microbiology Date/Time Procedure - Status Source Growth 12/04 1999 Urine Culture - RES URINE CC Plan: Assessment: 1. LEFT hip fracture after fall 2. Severe cardiomyopathy and chronic systolic congestive heart failure with severe mitral regurgitation. 3. 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 Dementia Recommendations: Echocardiogram today confirms continued severe cardiomyopathy with ejection fraction in the 15-20% range. Patient continues to be an increased/high risk for surgery but with LEFT hip fracture and possibility of patient trying to get up out of bed due to her dementia, it is reasonable to proceed with surgical correction. Patient does have advanced conduction system disease with possibility that she has had transient complete heart block as a cause for her recent fall. Would recommend single lead pacemaker insertion to help prevent recurrent fall and further injuries. Timing of pacer insertion would not effect patient's surgical risk. This could be performed after her hip surgery. at 1355
[2016-12-04] MEDS ORDERED: FUROSEMIDE 40MG40 M1 PO (09:57)
[2016-12-04] MEDS ORDERED: LANOXIN0.125 MG PO (10:33)
--- NOTE | 2016-12-04 10:44 | RADIOLOGY REPORT PS360 ---
CT CHEST W/O CONTRAST Ordering Physician: Wesly Triplett MD Patient Age: 86 years: Female HISTORY: FALL TECHNIQUE: Helical CT scanning through the chest with no oral nor IV contrast. Sagittal and coronal reconstructions on CT workstation. COMPARISON: 12/03/2016 CXR at 1915 hours. This study performed at 2040 hour. Study also reviewed in conjunction with subsequent CT abdomen pelvis 12/03/2016. FINDINGS No pneumothorax evident. But there is some atelectasis and mild residual chronic peripheral fibrotic changes at the left lung with this atelectasis or slight crowding of markings at the left infrahilar region. Likely some mild scarring pleural and parenchymal with shift of the mediastinum to the left . . The heart is slightly to the left of midline. Small-moderate pericardial effusion most pronounced posterior aspect of the heart were measures up to 15 mm maximally.. It is less pronounced on the subsequent CT abdomen were there is better inspiration.measuring 11 mm on that exam. Initially question there may be some adjacent atelectasis at the left lower lobe contribute to this appearance but on subsequent CT abdomen there is better expansion here this appears to be a [id number] pericardial effusion No pleural effusion. Scant pleural parenchymal scarring most evident at the posterior sulcus and posterior left base. Again better expansion here on subsequent CT abdomen image set. Small 7mm Calcified granulomata periphery of the RLL with calcified hilar nodes reflecting old granulomatous disease. Elevation right hemidiaphragm more pronounced on previous chest film No acute rib fracture identified.Dextrocurvature thoracic spine again noted and may be positional as this feature is more evident than [place]cia study.. Mild accentuated kyphosis at the upper T-spine but no compression fractures of the T-spine. No acute findings here. Upper abdomen shows a unremarkable liver and spleen on this noncontrast study. If there should be persistent abdominal pain a follow-up CT abdomen with contrast would be warranted as per trauma protocol IMPRESSION: No pneumothorax. No acute thoracic injury findings Bibasilar atelectasis left greater than right on this study. (Actually there is better expansion of the lungs bases on subsequent CT abdomen/pelvis from today) Mild chronic lung changes Small/moderate Pericardial effusion is most pronounced posteriorly at heart . Cardiomegaly. No obvious fracture ribs nor compression fracture T-spine. Moderate Dextrocurvature T-spine today's study,, which was not seen in May.., Thus possibly positional reflect splinting.
--- NOTE | 2016-12-04 10:55 | CONSULT NOTE ---
Consultation findings: Referring physician: Dr. Triplett Date of examination: 12/04/16 Time of examination: 1000 Exam findings: Chief complaint: Unwitnessed fall at correction with LEFT hip fracture PRIMARY DIAGNOSIS: Displaced femoral neck fracture, LEFT hip Allergies: Coded Allergies: promethazine History of present illness: Patient is a pleasant 86-year-old white female admitted to hospital yesterday evening with a diagnosis of LEFT hip fracture. Patient has severe dementia and her granddaughter who is her healthcare proxy- is with her in the room. Patient was brought to the ER with history of an unwitnessed fall and evaluation in the ER showed a displaced intracapsular fracture neck of LEFT femur. She was admitted for evaluation and further management. Patient says she is doing well and reports pain in her LEFT hip. She has history of heart failure with very low ejection fraction. No history of any other injuries. No history of any chest pain, shortness of breath, loss of consciousness or head injury. She is a resident of a correction. I have previously seen her in the office for an infected hardware in her LEFT ankle. At one point with planned removal of the distal fibula plate but he could not do this because of her cardiac problems. We have referred her to a tertiary care facility in [place] but her granddaughter says they never went there. She says that the ankle ulcer eventually healed with oral antibiotics. Past medical history: Family HX Diabetes Yes CAD No Hypertension No Hyperlipidemia No Cancer Yes TB No Immunization HX DT/Tetanus Unknown Pneumonia Unknown TB Test in last year No General CAD? No Angina: No IA: No Hypertension? No Hyperlipidemia? Yes CHF? No DVT? No PE? No COPD? No Asthma? No Anemia? No GERD? No Gastric ulcers? No GI Bleed? No Hernia? No Thyroid Problems? Yes Hypothyroidism? Yes CVA? No Seizures? Yes Diabetes? No Renal Insuffiency? No UTI? Yes Stones? No GB Disease: No Nephritic Syndrome? No Asplenia? No Hepatitis? No Sickle Cell Disease? No Arthritis? No Migraines? No Cataracts? Yes Glaucoma? No MRSA? No HIV? No TB? No Anxiety? No Depression? No Cancer? No More? Yes Additional hx: ALZHEIMERS Past Surgical HX Previous Surgery?Y L KNEE SURGERY LEFT FOOT Current home meds: Active Scripts Amoxicillin (Amoxicillin 500MG) 500 MG PO Q8 #30 CAP Prov: 01/08/16 Reported Medications ASPIRIN (Aspirin) 81 MG PO DAILY DONEPEZIL HCL (Donepezil 10MG Tablet) 15 MG PO QHS Furosemide (Furosemide) 20 MG PO DAILY PRN SWELLING Levothyroxine Sodium (Levothyroxine 0.075MG) 0.075 MG PO DAILY Meloxicam (Meloxicam 15MG) 15 MG PO DAILY MEMANTINE HCL (Namenda XR) 28 MG PO DAILY VIT C/VIT E/LUTEIN/MIN/OMEGA-3 (Ocuvite Softgel) 1 SGL PO DAILY Multivitamins-Min/FA/Ginkgo (One Daily For Women 50+ Adv Tb) 1 EACH PO DAILY Calcium Carbonate/Vitamin D3 (Oyster Shell 500 MG + Vit D Tb) 1 EACH PO BID POTASSIUM CHL (Potassium Chloride) 10 MEQ PO DAILY PRN WITH FUROSEMIDE Ranitidine Hcl (Ranitidine 150MG) 75 MG PO BID TRAZODONE HCL (Trazodone HCl) 50 MG PO QHS VITAMIN B12 (Cyanocobalamin Injection) 1,000 MCG PO DAILY Social Hx: Smoking HX Tobacco No Are you/the child exposed to second-hand smoke: No Alcohol Alcohol: No Hx of Drug Use Drug Use? No Patien't marital status is single Patient's support system is excellent Comment: Maintains DNR status, long-term resident of memory unit at local correction Review of systems: Constitutional No: fever, malaise, weakness. Respiratory No: no symptoms reported. Cardiovascular No no symptoms reported Gastrointestinal/Abdominal No no symptoms reported Genitourinary No: no symptoms reported, see HPI. Musculoskeletal No: no symptoms reported. Neurological No: see HPI. Exam: Lab data for last 24 hours: Laboratory Tests 12/04/16 0620: Sodium 142, Potassium 4.3, Chloride 104, Carbon Dioxide 29, BUN 22 H, Creatinine 0.7, Estimated Creat Clear 45 L, Estimated GFR (MDRD) 79, Glucose 190 H, Calcium 8.6, WBC 7.3, RBC 3.64 L, Hgb 11.3 L, Hct 35.1 L, MCV 96.6, RDW 15.4, Plt Count 160, MPV 8.4, Gran % 82.4 H, Gran # 6.0, Lymphocytes % 9.5 L, Monocytes % 7.9, Eosinophils % 0.0 L, Basophils % 0.2, Lymphocytes # 0.7, Monocytes # 0.6, Eosinophils # 0.0, Basophils # 0.0, [facility] MCHC 32.1, MCH 31.0 12/03/161999: Urine Color YELLOW, Urine Appearance CLEAR, Urine pH 6.0, Ur Specific [place] 1.025, Urine Protein NEGATIVE, Urine Ketones NEGATIVE, Urine Blood NEGATIVE, Urine Nitrate POSITIVE H, Urine Bilirubin NEGATIVE, Urine Urobilinogen 0.2, Ur Leukocyte Esterase TRACE H, Urine RBC OCC, Urine WBC 5-10, Amorphous Sediment 1 +, Urine Bacteria 4+, Urine Mucus 1+, Urine Glucose NEGATIVE 12/03/161824: Troponin I < 0.02 12/03/161824: Sodium 143, Potassium 4.2, Chloride 103, Carbon Dioxide 35 H, BUN 25 H, Creatinine 0.7, Estimated Creat Clear 49 L, Estimated GFR (MDRD) 79, Glucose 187 H, Calcium 9.1, Total Bilirubin 0.3, AST 23, ALT 24, Alkaline Phosphatase 107, Total Protein 7.1, Albumin 3.2 L, Globulin 3.9 H, Albumin/Globulin Ratio 0.8 L, WBC 4.5 L, RBC 3.83 L, Hgb 11.7 L, Hct 37.1, MCV 97.0, RDW 15.6, Plt Count 168, MPV 8.1, Gran % 68.0, Gran # 3.1, Lymphocytes % 22.2, Monocytes % 7.4 , Eosinophils % 2.2, Basophils % 0.3, Lymphocytes # 1.0, Monocytes # 0.3, Eosinophils # 0.1, Basophils # 0.0, [facility] MCHC 31.5 L, MCH 30.6 Microbiology 12/04 1999 URINE CC: Urine Culture - RECD Admission vital signs: 1ST Vital Signs Result Date Time Pulse Ox 93 12/03 1145 O2 Delivery ROOM AIR 12/03 1145 B/P 142/86 12/03 1145 Temp 98.2 12/03 114 Pulse 94 12/03 1145 Resp 18 12/03 1145 Exam: General Appearance: normal appearance, thin built. No acute distress. Patient is talkative, disoriented to place and time. ENT: mucous membranes moist Neck: normal inspection, non-tender, supple, full range of motion, trachea central Respiratory: trachea midline, non tender chest. No respiratory distress. Normal breath sounds bilaterally, lungs clear to auscultation. Cardiovascular: regular rate/gallop rhythm noted, no peripheral edema, no JVD, no murmur, no rub, normal peripheral pulses Gastrointestinal: Abdomen is soft and nontender, normal bowel sounds over all 4 quadrants, no organomegaly, no CVA tenderness. Neurologic: alert and talkative, cranial nerves II-12: grossly intact Skin: intact, normal color, warm/dry On examination of her lower extremities, there is shortening of the LEFT leg and the foot is externally rotated. On examination of the LEFT hip the skin is normal. No rashes or lesions noted. She is tender over the LEFT hip. Any attempted movements of the LEFT hip are painful. Thigh and calf are soft and nontender. Dorsalis pedis and posterior tibial pulses are palpable 2+ bilaterally. Sensation is grossly intact. She has good range of foot, ankle and toe movements. Imaging: X-rays of her pelvis, LEFT hip and LEFT femur multiple views were reviewed along with the radiologist's report. The x-rays show a displaced intracapsular fracture neck of LEFT femur. No other acute changes noted. There is a degree of osteopenia. Impression: Displaced Fracture neck of femur, LEFT Recommendations: I reviewed the clinical and x-ray findings with the patient and her granddaughter who is her healthcare proxy and was with her in the room. I have discussed the diagnosis and management options in detail including both nonsurgical and surgical. I have recommended surgical remediation in the form of a hemiarthroplasty LEFT hip. I explained the procedure, risks and benefits, alternatives and the expected postoperative course. I explained to the patient and her son with drawings of the fracture and the proposed surgical procedure. The complications discussed include but are not limited to infection, injury to nerves and blood vessels, DVT and PE, femur fracture, limb length inequality, dislocation, implant failure, loosening, acetabular wear, osteolysis, periprosthetic femur fracture, heterotopic ossification, abductor weakness and a limp, incomplete relief of pain, incomplete return of function or motion, likely need for further surgery in future including revision, anesthetic/medical complications including heart attack, stroke, transfusion reactions and even . We discussed how any of these events can be devastating. We have discussed nonsurgical alternatives as well. We also discussed the postoperative course including the rehab and physical therapy required. She lives lives in correction and can go back there after surgery for rehab. All their questions were answered and they verbalized a good understanding. She was medically cleared for surgery by Dr. Triplett in the morning and she was also cleared by cardiology. Well also obtain a preoperative anesthetic evaluation. I have recommended- Type and screen Continue IV fluids DVT prophylaxis as per protocol Analgesia as needed Consent patient for a hemiarthroplasty LEFT hip. Order 2 g of IV Ancef for preoperative prophylaxis to start half an hour before surgery. I am planning to take her for surgery at the earliest opportunity today. Thank you for the opportunity to take part in the care of this very pleasant patient.
[2016-12-04 13:46] LABS: ABO BLOOD TYPE A; RH BLOOD TYPE POSITIVE
--- NOTE | 2016-12-04 15:49 | RADIOLOGY REPORT PS360 ---
PROCEDURE: 2-D M-mode and color Doppler study INDICATIONS FOR THE TEST: Chest pain COPD Heart Murmur Tobacco Smoking Palpitations Fatigue Syncope Edema+ Hypertension+Diabetes Mellitus Rheumatic Fever SOB+WHITNEY Obesity Hyperlipidemia Family History HD Additional History CHF, EF hx of 15-20% 07/01/16, Alzheimers with recent fall PATIENT INFORMATION HEIGHT: 66 WEIGHT: 125 GENDER: Female B/P: 123/73 2-D/M-MODE INTERPRETATION: 2-D MEASUREMENTS OBSERVED VALUES IN CMS Right Ventricular Dimension (RVDd) 2.6 Interventricular Septum (Thickness)(IVsd) 1.0 Left Ventricular Internal Dimensions(LVIDd) 6.2 Left Ventricular Posterior Wall (Thickness)(LVPWd) 1.0 Aortic Root 2.0 Aortic Cusp Separation 1.6 Left Atrial Dimensions (LAD) 4.2 2D 1. Left atrium is moderately enlarged, left ventricle is mildly dilated, there is severely reduced left ventricular systolic function, visually estimated ejection fraction of 20-25%, there is marked hypo to akinesis involving mid to distal septum, anterior, anteroapical ,apex, anterolateral and infero apical wall. The basal portion of the heart contracts reasonably well. 2. The right atrium and right ventricle are normal size and contractility. 3. The aortic valve is minimally thickened and fibrosed, there is no aortic stenosis. 4. The mitral valve has mitral calcification, there is no mitral stenosis. 5. The tricuspid valve is structurally normal. 6. The pulmonic valve is not well visualized. 7. There is small circumferential pericardial effusion noted. DOPPLER INTERROGATION: Doppler interrogation of the aortic mitral and tricuspid valvular presence of mild mitral and tricuspid regurgitation, tricuspid regurgitant jet velocity is insufficient for calculation of the right ventricular systolic pressure, grade 2 diastolic dysfunction seen with tissue Doppler evidence of raised left atrial pressure. CONCLUSION: 1. Moderately enlarged left atrium, mildly dilated left ventricle, severely reduced left ventricular systolic function, visually estimated ejection fraction of 20-25% with segmental wall motion abnormalities as described above, Doppler evidence of raised left atrial pressure. 2. Mild mitral and tricuspid regurgitation. 3. Small circumferential pericardial effusion noted.
--- NOTE | 2016-12-04 16:09 | Anesthesia Record ---
Anesthesia Record Part I Total IV fluids: 1500 EBL (ml): 150 Urine Output: 250 B/P: 112/62 % SaO2: 95 Pulse: 80 Resps: 16 Temp: 99.2 Patient is: Awake, Nasal O2, Stable Stable to PACU at: 1605 at 1609
--- NOTE | 2016-12-04 16:10 | Anesthesia Record ---
Anesthesia Record Part II Discharge time: 1635 Destination: Second Floor PACU nurse assessment review? Yes Patient is: Stable Anesthesia complications? No at 1606
--- NOTE | 2016-12-04 16:29 | Operative Note ---
Procedure/Operative Record Date of Procedure: 12/04/16 Referring physician: Dr. Triplett Pre-op diagnosis: Displaced fracture neck of femur, LEFT hip Post-op diagnosis: Displaced fracture neck of femur, LEFT hip Procedure performed: Bipolar hemiarthroplasty, LEFT hip Surgeon: KAITLIN HANSON MD Meter Technician(s): Wendy Reyes Anesthesia: Spinal Indications: Patient is an 86-year-old female who sustained a displaced intracapsular fracture neck of LEFT femur following an unwitnessed fall. A hemiarthroplasty was indicated to relieve pain and restore function. Findings: Displaced sub capital femoral neck fracture of the LEFT hip as noted on the preoperative hip x-rays. The articular cartilage of the acetabulum is well maintained without evidence of any significant arthritis. The proximal femur bone quality was good. Description of procedure: On the day of the procedure the patient and family were met on the floor, and a physical examination was performed. The operating side and site were marked and initialed by me. I reviewed the diagnosis, natural history and management options in detail including both the nonsurgical and surgical. Given the nature of the fracture, I have recommended surgery in the form of a hemiarthroplasty of the LEFT hip. I discussed the procedure, risks and benefits, alternatives, potential complications and expected outcomes with the patient and family. The complications discussed include but are not limited to infection, injury to nerves and blood vessels, DVT and PE, femur fracture, limb length inequality, dislocation, implant failure, loosening, acetabular wear, osteolysis, periprosthetic femur fracture, heterotopic ossification, abductor weakness and a limp, incomplete relief of pain, incomplete return of function or motion, likely need for further surgery in future including revision, anesthetic/medical complications including heart attack, stroke, transfusion reactions and even . We discussed how any of these events can be devastating. We have discussed nonsurgical alternatives as well. We also discussed the postoperative course including the rehab and physical therapy required. The consent form was reviewed and signed. The patient was brought to the operating room and a spinal anesthesia was administered by the central supply nurse. The patient was then transferred onto the operating table and positioned in the RIGHT lateral decubitus position with the LEFT hip facing upwards. All the bony prominences were well-padded. The LEFT lower extremity was then prepped and draped in the usual sterile fashion. The entire operative team used isolation suits and room traffic was controlled. The surgical landmarks and incision was marked over the skin with a marking pen. [place]an sterile drape was used to cover the operative site and isolate the perineum completely from the operative field. Administration of 2 g of prophylactic IV Ancef was confirmed with the anesthetic team. A preprocedure timeout was performed as per hospital protocol. A posterior approach was used to the hip joint. An electrocautery was used for hemostasis. The skin incision was made centering over the posterior border of the greater trochanter extending posteriorly in a curvilinear fashion across the buttock. The dissection was carried through subcutaneous tissue down to the fascia lio. The fascia lio and gluteus fascia were split and a Charnley retractor was placed. The trochanteric bursa was then removed with blunt dissection. The sciatic nerve was identified and kept out of the harm's way throughout the rest of the procedure. The hip was then internally rotated and the fat over the external rotators was cleared with a sponge. The short external rotator muscles were identified, a tag stitch was placed near their insertion, and they were divided close to the greater trochanter with electrocautery. This exposed the joint capsule which was opened with a T shaped incision and tag stitches were applied to both the leaves of the capsule. Upon entering the joint capsule, a fracture hematoma was noted as well as the displaced sub-capital femoral neck fracture. A corkscrew was then used to remove the femoral head from the acetabulum and passed to the crime lab technician to be sized on the back table. It measured 47 mm. All bony fragments were then removed from the acetabulum and surrounding soft tissue. The acetabulum was then inspected and found to be clear. The articular cartilage was noted to be well maintained without any significant arthritic changes. Our attention was then turned to the preparation of proximal femur where a cutting guide was used to anne marie the neck for the femoral neck cut. An oscillating saw was then used to finish the femoral cut. A box osteotome was then used to remove the bone from the proximal femur. A canal entry reamer was then used to open the femoral canal paying close attention to keep the reamer in a lateral position. Next we performed femoral broaching starting with a small broach, making efforts to lateralize the broach. The broaching was continued sequentially up to size 2 broach. We found this to be a very good fit without any rocking. We then used the calcar reamer to finish the femoral preparation. We then performed a trial reduction using the size 2 broach, +0 neck and 47 mm bipolar head. With this the reduction was difficult and the limb was noted to be slightly longer compared to the RIGHT side. Therefore we trialed again with a -4 mm neck The hip was taken through range of motion and tested in adduction, internal and external rotation as well as with a shuck and posteriorly directed force on a flexed hip. It was noted that the hip was very stable with these trial components throughout the range of motion. We also noted that the limb lengths were equal with these components. Next, the trial components were removed and the femur and acetabulum were irrigated with pulse lavage and suctioned out. The size 2 [place] accolade 132 degree femoral stem was introduced and seated to the appropriate level. This gave us a very good fit without any play whatsoever. We then irrigated and dried the Lopes taper and then placed the definitive 47 mm bipolar femoral head assembly on the stem and tapped into place. The hip was then reduced and again taken through range of motion and noted to be stable. The limb length was also well corrected. The hip joint was then soaked with dilute Betadine solution for 3 minutes, then suctioned out and irrigated with normal saline pulse lavage. At this point I also injected the capsule and soft tissue with the local anesthetic cocktail ( 0.5 percent bupivacaine 200 mg +10 mg of morphine +600 g of epinephrine +750 mg of cefuroxime +30 mg of ketorolac diluted in normal saline to make up a total volume of 120 mL). We confirmed good hemostasis and then proceeded to close the wound. The capsule was closed with interrupted #1 Vicryl sutures followed by reattachment of the external rotators to the greater trochanter with #1 Vicryl sutures. Next the fascia lio and the gluteus fascia were closed with #1 Vicryl sutures. The wound was then again irrigated copiously with pulse lavage and suctioned dry. Next the subcutaneous tissues were closed with 2-0 Vicryl sutures. The skin was closed with 4-0 Monocryl subcuticular sutures, Dermabond and Steri-Strips. Sterile dressings were applied consisting of Xeroform, 4 x 4 and ABDs as well as adhesive tape. No drains were placed. The patient was then transferred from the operating table onto the bed. The leg lengths were again checked in supine position and noted to be equal. An abduction pillow was placed between the legs. The patient was then reversed from the anesthetic and transported to the postoperative recovery area in a stable condition. She tolerated the procedure well and there were no immediate complications. Swab, needle and instrument counts were correct according to the scrub team at the end of the procedure. Portable X-rays of the LEFT hip AP and lateral views were obtained in the recovery area and noted to be satisfactory. Postoperatively, continue standard precautions for a posterior hip approach. To mobilize weightbearing as tolerated with the help of a walker by physical therapist and to commence standard physical therapy and precautions for a posterior hip approach. EBL (ml): 150 Implant: [place] Accolade TMGF, 132 degree neck angle V 40, hip stem- size 2 [place] UHR universal head bipolar component- 47 mm outer diameter/28 mm inner diameter [facility] LFIT V40 femoral head, 28 mm outer diameter, -4mm offset (Industry authorization representative: Sonny Salas from [employer]) Complications: None Specimens: None
[2016-12-05 04:27] VITALS: BP 96/62
[2016-12-05 06:42] LABS: LYMPH # 0.6 K/mm3 (0.7-4.5)
[2016-12-05 06:57] LABS: HEMOGLOBIN 9.4 g/dL (12.2-16.2)
[2016-12-05 08:15] VITALS: BP 91/57
--- NOTE | 2016-12-05 08:15 | ACUTE CARE PROGRESS NOTE (QUA) ---
Progress Notes Subjective Date 12/05/16 Time 0740 Note Patient rested well throughout the night. She is having a significant amount of LEFT hip pain this morning. She has not had any pain medicine through the night. Requested for nursing to medicate for pain, will continue to monitor. Incentive spirometer at bedside; however patient is unable to use. Alert and oriented at baseline. Rhythm irregular with murmur noted. Trace lower extremity edema. Lungs sounds clear and equal throughout all lung alba. LEFT hip dressing clean dry and intact. Pedal pulses 2+ bilaterally abdomen soft and diffusely tender in all quadrants. Bowel sounds normoactive Patient/family reports: pain Nursing reports: pain Objective Findings Last VS-Temp:99.6 B/P:96/62 Pulse:95 Resp:16 SaO2:93 OXYGEN Last weight lbs:112 oz:6 K.973 Method:Bed Scales Reviewed: medications, vital signs, lab results, radiology report Assessment/Plan Problem List 1. Closed left hip fracture Assessment/Plan: Goal to optimize pain control Qualifiers: Encounter type: initial encounter Qualified Code: S72.002A - Fracture of unspecified part of neck of left femur, initial encounter for closed fracture 2. Systolic congestive heart failure Assessment/Plan: Cardiology is following. Given patient's extensive medical history and age, I do not think she is a good candiadate for PPM. I discussed PPM with family this morning and they do not want to pursue at this time. . 3. Dementia Assessment/Plan: At baseline, continue Aricept. Qualifiers: Dementia type: unspecified type Dementia behavioral disturbance: without behavioral disturbance Qualified Code: F03.90 - Unspecified dementia without behavioral disturbance 4. UTI (urinary tract infection) Assessment/Plan: Urine culture showed E. coli ESBL positive. Antibiotics changed based on sensitivity to ertapenem Qualifiers: Urinary tract infection type: acute cystitis Hematuria presence: without hematuria Qualified Code: N30.00 - Acute cystitis without hematuria Patient condition Guarded Plan: See above This inpt stay is expected to cross 2 MNs from start of care Yes at 0814
--- NOTE | 2016-12-05 08:43 | ACUTE CARE PROGRESS NOTE (QUA) ---
Progress Notes Subjective Date 12/05/16 Time 0837 Note 86 yo WF in bed in NAD. Daughter relates patient began having some leg pain this AM which has responded to Morphine. Objective Findings Last VS-Temp:100.1 B/P:91/57 Pulse:110 Resp:20 SaO2:96 OXYGEN Last weight lbs:112 oz:6 K.973 Method:Bed Scales Exam General appearance: no acute distress Cardiovascular: irregular rate & rhythm Respiratory: clear to auscultation Extremities: no peripheral edema Reviewed: medications, vital signs, lab results Assessment/Plan Problem List 1. Closed left hip fracture Qualifiers: Encounter type: initial encounter Qualified Code: S72.002A - Fracture of unspecified part of neck of left femur, initial encounter for closed fracture 2. Systolic congestive heart failure 3. Dementia Qualifiers: Dementia type: unspecified type Dementia behavioral disturbance: without behavioral disturbance Qualified Code: F03.90 - Unspecified dementia without behavioral disturbance 4. 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 No pauses noted at this time. Will continue to monitor for arrhythmias while physical therapy works with patient. Patient condition Guarded Plan: continue current care This inpt stay is expected to cross 2 MNs from start of care Yes at 0843
[2016-12-05 10:02] VITALS: BP 91/57
[2016-12-05 12:30] VITALS: BP 104/66
--- NOTE | 2016-12-05 13:09 | RADIOLOGY REPORT PS360 ---
HIP LT 2-3V W/PELVIS IF PERFOR Ordering Physician: Wesly Triplett MD Patient Age: 86 years: Female HISTORY: POSTOP HEMIARTHROPLASTY TECHNIQUE AP and crosstable lateral view left hip FINDINGS bipolar hip prosthesis in place to address the subcapital fracture seen on 711 radiograph. The medullary stem appears to be reasonably good position. The femoral head component articulates satisfactorily with the point hope ira acetabulum. Modest distances between the lesser trochanter and the pelvis on this study but noted on but overall the prosthesis appears to be in good position. Haq catheter in place. IMPRESSION: Bipolar left hip femoral prosthesis now in place.
--- NOTE | 2016-12-05 13:09 | RADIOLOGY REPORT PS360 ---
HIP LT 2-3V W/PELVIS IF PERFOR Ordering Physician: Wesly Triplett MD Patient Age: 86 years: Female HISTORY: POSTOP HEMIARTHROPLASTY TECHNIQUE AP and crosstable lateral view left hip FINDINGS bipolar hip prosthesis in place to address the subcapital fracture seen on 711 radiograph. The medullary stem appears to be reasonably good position. The femoral head component articulates satisfactorily with the [place] acetabulum. Modest distances between the lesser trochanter and the pelvis on this study but noted on but overall the prosthesis appears to be in good position. Haq catheter in place. IMPRESSION: Bipolar left hip femoral prosthesis now in place.
--- NOTE | 2016-12-05 13:21 | ACUTE CARE PROGRESS NOTE ---
Progress note Date: 12/05/16 Assessment: Subjective data: Patient is an 86-year-old female. She is status post LEFT hip bipolar hemiarthroplasty, post op day # 1. She is sitting out on the chair and appears comfortable. She says she is doing well and her pain is well controlled. Her daughter says she did not have any pain through the night and only complained of pain in the morning. She is eating and drinking well. No history of any nausea, vomiting, chest pain or shortness of breath. Exam Vital Signs Result Date Time Pulse Ox 95 12/05 1230 B/P 104/66 12/05 1230 O2 Delivery ROOM AIR 12/05 1230 Temp 98.6 12/05 1230 Pulse 96 12/05 1230 Resp 18 12/05 1230 O2 Flow Rate 1 12/05 0604 General appearance: alert, awake, no acute distress ENT: mucous membranes dry Cardiovascular: Irregular heart rate and murmur noted Respiratory: clear to auscultation, normal breath sounds ABD: normal bowel sounds, soft, no tenderness, no guarding, no organomegaly Genitourinary: catheter in place Skin: dry, intact On examination of her LEFT lower extremity, the alignment is neutral and the limb lengths are equal. The dressings over the LEFT hip are clean, dry and intact. Her thigh and calf are soft and nontender. Distal neurovascular status is intact. Her postoperative hip x-rays are satisfactory. Laboratory Tests 12/05/16 0620: Sodium 143, Potassium 4.2, Chloride 109 H, Carbon Dioxide 29, BUN 23 H, Creatinine 0.6, Estimated Creat Clear 52, Estimated GFR (MDRD) 94, Glucose 151 H, Calcium 8.0 L, WBC 3.8 L, RBC 3.04 L, Hgb 9.4 L, Hct 29.3 L, MCV 96.3, RDW 15.7, Plt Count 122 L, MPV 8.4, Gran % 76.1, Gran # 2.9, Lymphocytes % 15.0 , Monocytes % 8.1, Eosinophils % 0.5, Basophils % 0.2, Lymphocytes # 0.6 L, Monocytes # 0.3, Eosinophils # 0.0, Basophils # 0.0, PUBS MCHC 31.9, MCH 30.7 Impression: 1. Closed left hip fracture Qualifiers Encounter type: initial encounter Qualified Code: S72.002A - Fracture of unspecified part of neck of left femur, initial encounter for closed fracture 2. Systolic congestive heart failure 3. Dementia Qualifiers Dementia type: unspecified type Dementia behavioral disturbance: without behavioral disturbance Qualified Code: F03.90 - Unspecified dementia without behavioral disturbance 4. 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 Physical therapy to continue mobilization weightbearing as tolerated with the walker. Use abduction pillow when in bed and continue using this for 6 weeks postop. Continue standard precautions for posterior approach to the hip joint. Continue DVT prophylaxis for 5 weeks. Medical management as per Dr. Triplett's team.
[2016-12-05 16:27] VITALS: BP 116/74
[2016-12-05 20:21] VITALS: BP 124/96
[2016-12-06] VITALS (8 sets, daily range): BP systolic 90–125; BP diastolic 61–70
--- NOTE | 2016-12-06 07:38 | ACUTE CARE PROGRESS NOTE (QUA) ---
Progress Notes Subjective Date 12/06/16 Time 0736 Note Overall patient feels very good this morning. Eating breakfast, bright, talkative. Low-grade temperatures to the day yesterday. Minimal pain. Did well with physical therapy. Anterior lung alba are clear, heart rate regular. Gallop rhythm continues to be noted. Distal extremities look good. Objective Findings Last VS-Temp:99.4 B/P:107/68 Pulse:94 Resp:16 SaO2:91 ROOM AIR Last weight lbs:118 oz:7 K.722 Method:Bed Scales Assessment/Plan Problem List 1. Closed left hip fracture Qualifiers: Encounter type: initial encounter Qualified Code: S72.002A - Fracture of unspecified part of neck of left femur, initial encounter for closed fracture 2. Systolic congestive heart failure 3. Dementia Qualifiers: Dementia type: unspecified type Dementia behavioral disturbance: without behavioral disturbance Qualified Code: F03.90 - Unspecified dementia without behavioral disturbance 4. 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 Infection due to ESBL-producing Escherichia coli Patient condition Improving Plan: continue current care, plan to discharge back to residential for skilled care when fever curve improved. Continues to be on Invanz for ESBL positive E. coli pneumonia. This inpt stay is expected to cross 2 MNs from start of care Yes at 0737
--- NOTE | 2016-12-06 12:55 | ACUTE CARE PROGRESS NOTE ---
Progress note Date: 12/06/16 Assessment: Subjective data: Patient is an 86-year-old female. She is status post LEFT hip bipolar hemiarthroplasty, post op day # 2. She is sitting out on the chair and appears comfortable. She says she is doing well and her pain is well controlled. She is eating and drinking well. No history of any nausea, vomiting, chest pain or shortness of breath. She had low-grade fever last night. Objective: Exam General appearance: alert, awake, no acute distress ENT: mucous membranes dry Cardiovascular: Irregular heart rate and murmur noted Respiratory: clear to auscultation, normal breath sounds ABD: normal bowel sounds, soft, no tenderness, no guarding, no organomegaly Genitourinary: catheter in place Skin: dry, intact On examination of her LEFT lower extremity, the alignment is neutral and the limb lengths are equal. The dressings over the LEFT hip are clean, dry and intact. Her thigh and calf are soft and nontender. Distal neurovascular status is intact. Her postoperative dressings were changed today. The surgical incision looks clean and dry and healthy. Impression: 1. Closed left hip fracture Qualifiers Encounter type: initial encounter Qualified Code: S72.002A - Fracture of unspecified part of neck of left femur, initial encounter for closed fracture 2. Systolic congestive heart failure 3. Dementia Qualifiers Dementia type: unspecified type Dementia behavioral disturbance: without behavioral disturbance Qualified Code: F03.90 - Unspecified dementia without behavioral disturbance 4. UTI (urinary tract infection) Qualifiers Urinary tract infection type: acute cystitis Hematuria presence: without hematuria Qualified Code: N30.00 - Acute cystitis without hematuria 5. RBBB (right bundle branch block with left anterior fascicular block) 6. Infection due to ESBL-producing Escherichia coli Plan: I reviewed her vital signs, lab results, nursing notes, medical progress notes, medication and also discussed with the nursing staff regarding her progress. Physical therapy to continue mobilization weightbearing as tolerated with the walker. Use abduction pillow when in bed and continue using this for 6 weeks postop. Continue standard precautions for posterior approach to the hip joint. Postoperative dressings were changed today and the wound looks healthy. From an orthopedic standpoint patient can be discharged back to the SNFas appropriate if medically stable. Recommend DVT prophylaxis for 5 weeks postop- the appropriate agents include Lovenox, Aspirin 325 mg, Xarelto (Rivaroxaban), Eliquis (apixaban ) and Coumadin. Follow-up in my office in 2 weeks time with check x-ray. Please feel free to call our office at [phone] for any orthopaedic questions. Medical management as per Dr. Triplett's team. Antibiotic Stewardship (2) Current Culture Results Microbiology 12/04 1999 URINE CC: Urine Culture - RES ESCHERICHIA COLI
--- NOTE | 2016-12-06 14:50 | ACUTE CARE PROGRESS NOTE (QUA) ---
Progress Notes Subjective Date 12/06/16 Time 1443 Note 86 -year-old white female in bed in no acute distress. Patient is sleepy and the daughter relate she recently received some pain medication. She has been up to bedside chair and working with physical therapy. Patient has been running a low- grade temperature felt due to her urinary tract infection. Telemetry review reveals no evidence of bradycardia arrhythmias or pauses or evidence of complete heart block. Objective Findings Last VS-Temp:98.6 B/P:90/66 Pulse:85 Resp:18 SaO2:82 ROOM AIR Last weight lbs:118 oz:7 K.722 Method:Bed Scales Exam General appearance: no acute distress Cardiovascular: auscultation reveals a fairly regular rhythm. However review of telemetry reveals suspected atrial fibrillation with controlled ventricular response. Respiratory: clear to auscultation Extremities: moves all, no peripheral edema Neuro: sleepy but arousable to verbal stimuli. Reviewed: medications, vital signs, lab results Assessment/Plan Problem List 1. Closed left hip fracture Qualifiers: Encounter type: initial encounter Qualified Code: S72.002A - Fracture of unspecified part of neck of left femur, initial encounter for closed fracture 2. Systolic congestive heart failure 3. Dementia Qualifiers: Dementia type: unspecified type Dementia behavioral disturbance: without behavioral disturbance Qualified Code: F03.90 - Unspecified dementia without behavioral disturbance 4. 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 Infection due to ESBL-producing Escherichia coli 7. Atrial fibrillation Assessment/Plan: Continue Coreg and digoxin for rate control. Patient is not an anticoagulant candidate due to dementia and recent falls. Qualifiers: Atrial fibrillation type: persistent Qualified Code: I48.1 - Persistent atrial fibrillation Patient condition Guarded Plan: Continue to monitor intake and output in light of patient's severe cardiomyopathy. no further cardiac workup or testing. Please consult again if needed. This inpt stay is expected to cross 2 MNs from start of care Yes at 1450
[2016-12-06 19:23] LABS: URINE BILIRUBIN - DIPSTICK NEGATIVE (NEG); URINE BLOOD 2+ (NEG)
[2016-12-06 19:56] LABS: URINE SQUAMOUS CELLS OCC #/hpf (0-5)
[2016-12-07 04:34] VITALS: BP 119/72
[2016-12-07 07:02] LABS: HEMOGLOBIN 9.8 g/dL (12.2-16.2); LYMPH # 0.6 K/mm3 (0.7-4.5); LYMPH % 12.4 % (10-50.0)
--- NOTE | 2016-12-07 07:55 | ACUTE CARE PROGRESS NOTE (QUA) ---
Progress Notes Subjective Date 12/07/16 Time 0754 Note Overall patient did well overnight, eating breakfast vigorously, minimal pain. Urinary retention noted yesterday and Haq catheter replaced. Some LEFT labial swelling noted this also improved with warm compresses. Lungs are clear, heart rate regular. Objective Findings Last VS-Temp:99.0 B/P:119/72 Pulse:82 Resp:20 SaO2:93 ROOM AIR Last weight lbs:123 oz:1 K.82 Method:Bed Scales Assessment/Plan Problem List 1. Closed left hip fracture Qualifiers: Encounter type: initial encounter Qualified Code: S72.002A - Fracture of unspecified part of neck of left femur, initial encounter for closed fracture 2. Systolic congestive heart failure 3. Dementia Qualifiers: Dementia type: unspecified type Dementia behavioral disturbance: without behavioral disturbance Qualified Code: F03.90 - Unspecified dementia without behavioral disturbance 4. 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 Infection due to ESBL-producing Escherichia coli Patient condition Improving Plan: initiate discharge plan This inpt stay is expected to cross 2 MNs from start of care Yes at 0754
[2016-12-07] MEDS ORDERED: NORCO 325 MG-51 TAB PO (07:57)
[2016-12-07] MEDS ORDERED: INVANZ1 G1 IV (07:57)
[2016-12-07 08:00] VITALS: BP 114/64
--- NOTE | 2016-12-07 08:00 | DISCHARGE SUMMARY STANDARD ---
Demographics Admit date: 12/04/16 Discharge date: 12/07/16 History of present illness History of present illness 86-year-old white female with significant/end-stage dementia as well as significant cardiomyopathy with ejection fraction in the 20 percent range who presented to the emergency department after falling with LEFT hip pain, found to have fracture, admitted to hospital. This morning she is pleasant and talkative but clearly demented. Has no complaints of pain. The granddaughter is present in the room. She relates that there are 2 possibilities of outpatient broke her hip. One was that she was found down with no witnesses. The other was that she stood up after eating and tripped and fell. The patient does not remember. Electrocardiogram shows atrial fibrillation with controlled ventricular response , RIGHT bundle branch block and LEFT anterior fascicular block. Atrial fibrillation is new compared with electrocardiogram from earlier this year. She previously had a severe first-degree AV block. Hospital Course Hospital Course: Patient was evaluated by cardiology, recommended to continue current medications but noted to be at elevated cardiac risk because of her significant cardiomyopathy. Patient has a history of atrial fibrillation but is on no anticoagulation because of fall risk, as demonstrated by her fall with hip fracture. Patient underwent successful repair, and had no significant complications in the operating room. Recovery was uncomplicated and patient has done remarkably well. She's met her physical therapy goals. She was found to have an E. coli ESBL positive UTI, sensitive to Invanz therapy and this has been continued intravenously. Yesterday she was noted to have urinary retention and labial swelling and Haq catheter was replaced, warm compresses have been placed to the labia on the LEFT side 3 times a day and these will need to be continued. She'll be transferred to [facility] today. She will need 5 more doses of Invanz , 1 g daily, pain medication as prescribed for her hip fracture pain when necessary as prescribed. She'll need her Haq catheter continued until Friday when she can begin bladder training if the labial swelling is improved. She'll be followed up at our regular retirement rounds next week. Please note she'll continue to maintain her DNR status. Discharge diagnoses Problem List 1. Closed left hip fracture 2. Systolic congestive heart failure 3. Dementia 4. UTI (urinary tract infection) 5. RBBB (right bundle branch block with left anterior fascicular block) 6. Infection due to ESBL-producing Escherichia coli Medications Medications: Discharge meds are as noted. Follow up Follow up in office in: 4 DAYS with: Madison Allen APRN at [id number]
[2016-12-07 08:09] VITALS: BP 119/72
[2016-12-07 12:28] VITALS: BP 119/72
== END 2016-12-07 11:30 | DRG 470 ==
LOC: ER 18:23 → 2ND 21:46
PROVIDERS: Emergency Medicine; Internal Medicine Adolescent Medicine; Orthopaedic Surgery
PROC: 0SRB04Z Replacement of Left Hip Joint with Ceramic on Polyethylene Synthetic Substitute, Open Approach (ICD-10-PCS; principal; 2016-12-04 13:00)
DX: S72.012A Unspecified intracapsular fracture of left femur, initial encounter for closed fracture (principal); I42.9 Cardiomyopathy, unspecified; I50.22 Chronic systolic (congestive) heart failure; N39.0 Urinary tract infection, site not specified; I48.1 Persistent atrial fibrillation; W18.30XA Fall on same level, unspecified, initial encounter; Y92.129 Unspecified place in nursing home as the place of occurrence of the external cause; B96.20 Unspecified Escherichia coli [E. coli] as the cause of diseases classified elsewhere; I10 Essential (primary) hypertension; I44.0 Atrioventricular block, first degree; I12.9 Hypertensive chronic kidney disease with stage 1 through stage 4 chronic kidney disease, or unspecified chronic kidney disease; N18.3 Chronic kidney disease, stage 3 (moderate); Z91.81 History of falling; G30.9 Alzheimer's disease, unspecified; F02.80 Dementia in other diseases classified elsewhere, unspecified severity, without behavioral disturbance, psychotic disturbance, mood disturbance, and anxiety
CPT/HCPCS: C1713; C1776; J0697; J1335; J2405

== ENCOUNTER → 2017-03-06 | Outpatient (CLI) | payer MEDICARE, BC ==
[~2017-03-06] MED LIST changes: +CARVEDILOL3.125 M1 PO; +FUROSEMIDE 40MG40 M1 PO; +INVANZ1 G1 IV; +LANOXIN0.125 MG PO; +LISINOPRIL2.5 M1 PO; +MIRTAZAPINE15 M1 PO; +NORCO 325 MG-51 TAB PO; +SERTRALINE25 MG PO
--- NOTE | 2017-03-06 11:32 | RADIOLOGY REPORT PS360 ---
HIP LT 2-3V W/PELVIS IF PERFOR HISTORY: POSTOPERATIVE F/U ORDERING PHYSICIAN: KAITLIN HANSON MD PATIENT AGE: 86 years COMPARISON: 01/16/2017 FINDINGS: Bipolar prosthesis remains in place in good alignment. No evidence of acute fracture or dislocation. Heterotopic bone formation is present along the lateral aspect of the hip joint similar to the previous exam but definitely increased compared to 12/24/2016 IMPRESSION: 1. Status post hip replacement with good alignment. 2. Heterotopic bone formation lateral hip joint not significantly changed
== END ==
LOC: RAD 10:08
DX: Z48.89 Encounter for other specified surgical aftercare (principal)

== ENCOUNTER → 2017-04-29 | Outpatient (CLI) | payer MEDICARE, BC ==
[2017-04-29 10:35] LABS: LYMPH # 1.1 K/mm3 (0.7-4.5); LYMPH % 18.5 % (10-50.0)
[2017-04-29 10:47] LABS: HEMOGLOBIN 8.4 g/dL (12.2-16.2)
[2017-04-29 11:52] LABS: BUN 59 mg/dL (7-18)
[2017-04-29 11:55] LABS: GFR (ESTIMATED) 47 ML/MIN (59-)
== END ==
LOC: LAB 10:21
PROVIDERS: Nurse Practitioner Family
DX: N18.3 Chronic kidney disease, stage 3 (moderate) (principal)